=== PATIENT | female | born 1970 | race Caucasian/White ===

== ENCOUNTER 2017-07-31 19:02 | Emergency (ER) | payer MEDICAID ==
[~2017-07-31] VITALS: Ht 157.5 cm; Wt 67.3 kg
[2017-07-31 19:14] VITALS: BP 154/96
[2017-07-31 20:01] LABS: INFLUENZA TYPE A NEGATIVE FOR TYPE A (NEGATIVE); INFLUENZA TYPE B NEGATIVE FOR TYPE B (NEGATIVE)
[2017-07-31] MEDS ORDERED: KETOROLAC TROMETHAMINE 60 MG/2 ML VIAL IM ONE (20:15)
== END 2017-07-31 21:32 | disposition home or self-care (01) ==
LOC: EMS 19:06
DX: J06.9 Acute upper respiratory infection, unspecified (principal); B34.9 Viral infection, unspecified
CPT/HCPCS: 71046; 87804; 96372; 99285; J1885

== ENCOUNTER 2018-08-19 05:05 | Emergency (ER) | payer MEDICAID ==
[~2018-08-19] VITALS: Ht 157.5 cm; Wt 63.6 kg
[~2018-08-19 05:05] MED LIST: ACET-66 PO; ALBU17AE27 IH; ALBU8HFA IH; BECL8.7A7 IH; BENZ-51 PO; IPRA3AMP24 IH; PRED20 PO; [UNRECOGNIZED DRUG - CODE] PO
[2018-08-19] MEDS ORDERED: ALBUTEROL SULFATE 2.5 MG/0.5 ML NEB SOLUTION NEB ONE (07:00)
[2018-08-19] MEDS ORDERED: IPRATROPIUM BROMIDE 0.5 MG/2.5 ML NEB SOLUTION NEB ONE (07:00)
[2018-08-19] MEDS ORDERED: ALBUTEROL SULFATE HFA 90 MCG/PUFF 8 GM INHALER IH ONE (08:30)
[2018-08-19] MEDS ORDERED: PredniSONE 20 MG TABLET PO ONE (08:30)
[2018-08-19 09:33] VITALS: BP 117/74
== END 2018-08-19 09:39 | disposition home or self-care (01) ==
LOC: EMS 05:06
DX: J45.909 Unspecified asthma, uncomplicated (principal); Z79.899 Other long term (current) drug therapy
CPT/HCPCS: 71045; 94640; 99284; J7512; J3535

== ENCOUNTER 2022-09-10 12:00 | Emergency (ER) | payer MEDICAID, OTHER ==
[~2022-09-10] VITALS: Ht 162.6 cm; Wt 65.9 kg
[~2022-09-10 12:00] MED LIST changes: +ALBU18HF12 IH; -ALBU8HFA IH; +BENZ-227 PO; -BENZ-51 PO; +PRED-554 PO; -PRED20 PO
[2022-09-10 12:14] LABS: COVID AG,FIA SOURCE NASAL SWAB
[2022-09-10 12:48] LABS: INFLUENZA TYPE A NEGATIVE FOR TYPE A (NEGATIVE); INFLUENZA TYPE B NEGATIVE FOR TYPE B (NEGATIVE)
[2022-09-10] MEDS ORDERED: ALBUTEROL SULFATE 2.5 MG/0.5 ML NEB SOLUTION NEB ONE (13:30)
[2022-09-10] MEDS ORDERED: IPRATROPIUM BROMIDE 0.5 MG/2.5 ML NEB SOLUTION NEB ONE (13:30)
[2022-09-10] MEDS ORDERED: PredniSONE 20 MG TABLET PO ONE (13:30)
[2022-09-10 13:56] LABS: BASOPHILS % (AUTO) 0.5 % (0.0-2.0); HEMOGLOBIN 12.3 g/dL (12.0-16.0); LYMPHOCYTES # (AUTO) 1.4 K/uL (1.0-4.8); LYMPHOCYTES % (AUTO) 28.5 % (22.0-44.0); MEAN CORPUSCULAR HEMOGLOBIN 29.9 pg (26.0-34.0); MEAN CORPUSCULAR HGB CONC 33.3 G/dL (31.0-37.0); MEAN CORPUSCULAR VOLUME 90 fL (80-100); MONOCYTES # (AUTO) 0.4 K/uL (0.1-1.0); MONOCYTES % (AUTO) 8.2 % (2.0-9.0); NEUTROPHILS % (AUTO) 59.8 % (40.0-70.0); PLATELET COUNT (AUTO) 276 K/uL (150-450); RED BLOOD CELL COUNT(AUTO) 4.13 MIL/uL (4.00-5.20); RED CELL DISTRIBUTION WIDTH 14.2 % (11.5-14.5)
[2022-09-10 14:08] LABS: ANION GAP 7 mmol/L (8-16); CALCIUM, TOTAL 8.9 mg/dL (8.8-10.5); CARBON DIOXIDE 28 mmol/L (22-29); CHLORIDE 107 mmol/L (98-107); CREATININE 0.72 mg/dL (0.60-1.30); GLOMERULAR FILTR. RATE CALC > 60 mL/min (>60); GLUCOSE,RANDOM 126 mg/dL (70-110); SODIUM SERUM 142 mmol/L (136-145); UREA NITROGEN, BLOOD 10 mg/dL (7-18)
[2022-09-10 14:08] LABS: APPEARANCE,URINE CLEAR (CLEAR); BILIRUBIN,URINE NEGATIVE (NEGATIVE); GLUCOSE, URINE (UA) NEGATIVE (NEGATIVE); KETONES,URINE NEGATIVE (NEGATIVE); LEUKOCYTE ESTERASE ,URINE NEGATIVE (NEGATIVE); NITRATE,URINE NEGATIVE (NEGATIVE); OCCULT BLOOD,URINE LARGE (NEGATIVE); PH,URINE 6.5 (5.0-8.0); PROTEIN,URINE NEGATIVE (NEGATIVE); UROBILINOGEN,URINE <=1.0 mg/dL (<=1.0)
[2022-09-10 14:14] LABS: ALBUMIN 3.4 g/dL (3.4-5.0); ALKALINE PHOSPHATASE 79 U/L (46-116); ASPARTATE AMINOTRANSFERASE 23 U/L (15-37); BILIRUBIN,TOTAL 0.2 mg/dL (0.1-1.0); TOTAL PROTEIN, SERUM 7.4 g/dL (6.4-8.2)
[2022-09-10 14:27] LABS: ALANINE AMINOTRANSFERASE 19 U/L (12-78)
[2022-09-10 14:36] LABS: BACTERIA,URINE None Seen /HPF (None Seen); WBC,URINE None Seen /HPF (0-5)
[2022-09-10 14:57] VITALS: BP 136/76
[2022-09-10] MEDS ORDERED: AZIT250T9 PO (16:44)
[2022-09-10] MEDS ORDERED: PRED-554 PO (16:44)
== END 2022-09-10 17:14 | disposition home or self-care (01) ==
LOC: EMS 12:05
DX: J45.901 Unspecified asthma with (acute) exacerbation (principal); Z20.822 Contact with and (suspected) exposure to COVID-19
CPT/HCPCS: 99284; 71045; 87426; 80053; 81001; 85025; 87804; 36415; 94640; J7512; J7613

== ENCOUNTER 2022-10-19 11:56 | Emergency (ER) | payer OTHER ==
[~2022-10-19] VITALS: Ht 157.5 cm; Wt 63.6 kg
[~2022-10-19 11:56] MED LIST changes: -ALBU17AE27 IH; -BECL8.7A7 IH; -BENZ-227 PO; -IPRA3AMP24 IH; -[UNRECOGNIZED DRUG - CODE] PO
[2022-10-19 12:01] VITALS: BP 160/98
[2022-10-19 12:19] LABS: COVID AG,FIA SOURCE NASAL SWAB
[2022-10-19 13:16] LABS: INFLUENZA TYPE A NEGATIVE FOR TYPE A (NEGATIVE); INFLUENZA TYPE B NEGATIVE FOR TYPE B (NEGATIVE)
[2022-10-19] MEDS ORDERED: GUAIFDM PO (14:13)
[2022-10-19] MEDS ORDERED: ACET-2080 PO (14:13)
[2022-10-19] MEDS ORDERED: IBUP-1554 PO (14:13)
== END 2022-10-19 14:34 | disposition home or self-care (01) ==
LOC: EMS 11:58
DX: J06.9 Acute upper respiratory infection, unspecified (principal); J45.909 Unspecified asthma, uncomplicated; Z20.822 Contact with and (suspected) exposure to COVID-19
CPT/HCPCS: 87804; 99283